=== PATIENT | male | born 1995 | race Caucasian/White ===

== ENCOUNTER 2016-11-30 09:38 | Emergency (ER) | payer OTHER ==
[2016-11-30 10:07] VITALS: BP 121/74
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
== END 2016-11-30 10:11 | disposition home or self-care (01) ==
LOC: FB.ED 09:38
DX: S00.432A Contusion of left ear, initial encounter (principal); H93.12 Tinnitus, left ear; H91.92 Unspecified hearing loss, left ear; Y04.2XXA Assault by strike against or bumped into by another person, initial encounter
CPT/HCPCS: 99283